=== PATIENT | female | born 1985 | race Caucasian/White ===

== ENCOUNTER 2024-05-10 08:57 | Outpatient (CLI) | payer BC, MEDICAID ==
[~2024-05-10] VITALS: Ht 167.6 cm; Wt 121.8 kg
[~2024-05-10 08:57] MED LIST: ATIVAN 0.50.5 MG/TAB PO; DOXYCYCLINE 10100 MG PO; GLUCOPHAGE500 MG/TAB PO; SINGULAIR 110 MG/TAB PO; WELLBUTRIN XL300 M1 PO
[2024-05-10] MEDS ORDERED: LR 1,000 ML IV PRN (09:00)
[2024-05-10] MEDS ORDERED: ASPIRIN E.C. 8181 MG PO (09:19)
[2024-05-10] MEDS ORDERED: PRENATAL TABLET PO (09:19)
[2024-05-10] MEDS ORDERED: VITAMIN B-610 MG PO (09:19)
[2024-05-10] MEDS ORDERED: PRILOSEC10 MG PO (09:20)
--- NOTE | 2024-05-10 09:28 | NUR ---
0900 PT AMBULATES ONTO THE UNIT WITH SPOUSE FOR MONITORING.PT REPORTS HEADACHES AND MIDLINE PAIN THAT DEVIATES TO THE RIGHT.PT DENIES LOF/VB.PT REPORTS INCONSISTENT CONTRACTIONS. POC REVIEWED WITH PT.EFM AND TOCO TRACING CATEGORY 1.
[2024-05-10 09:30] VITALS: BP 129/70; PULSE 94; TEMP 98.4
[2024-05-10 10:00] VITALS: BP 114/75; PULSE 89
[2024-05-10 10:16] LABS: BASO % 0.4 % (0.0-2.0); EOS % 0.3 % (0.0-4.0); GRAN # 7.7 K/mm3 (1.4-6.5); GRAN % 70.6 % (42.2-75.2); HEMOGLOBIN 10.5 g/dl (12.5-16.0); LYMPH # 2.4 K/mm3 (1.2-3.4); LYMPH % 22.1 % (20.0-51.0); MEAN CELL VOLUME 84 fl (80.0-100.0); MEAN CORPUSCULAR HEMOGLOBIN 28 pg (27-31); MEAN CORPUSCULAR HGB CONC 33 g/dl (33.0-37.0); MEAN PLATELET VOLUME 9.1 fl (7.4-10.4); MONO # 0.7 K/mm3 (0.1-0.6); MONO % 6.2 % (1.7-9.3); PLATELET COUNT 224 K/mm3 (130-400); RED BLOOD COUNT 3.78 M/mm3 (4.10-5.30); REDCELL DISTRIBUTION WIDTH-CV 14.4 % (11.5-14.5)
[2024-05-10 10:18] LABS: HEMATOCRIT 31.6 % (37.0-47.0)
[2024-05-10 10:25] LABS: PH 6.5 (5.0-8.5); URINE APPEARANCE CLEAR (CLEAR/HAZY); URINE BLOOD NEGATIVE (NEGATIVE); URINE COLOR YELLOW (YELLOW); URINE GLUCOSE NEGATIVE (NEGATIVE); URINE KETONE NEGATIVE (NEGATIVE); URINE NITRATE NEGATIVE (NEGATIVE); URINE PROTEIN(semi-quant) NEGATIVE (NEGATIVE); URINE UROBILINOGEN 0.2 E.U/dL (0.2-1.0)
[2024-05-10 10:30] VITALS: BP 121/76; PULSE 89
[2024-05-10 10:32] LABS: ALANINE AMINOTRANSFERASE 10 U/L (0-55); ALBUMIN 2.8 g/dL (3.5-5.0); ALKALINE PHOSPHATASE 112 U/L (40-150); AMYLASE 35 U/L (25-125); ANION GAP 10 mmol/L (7-16); AST,SGOT 10 U/L (5-34); BILIRUBIN,TOTAL 0.3 mg/dL (0.2-1.2); CALCIUM 8.9 mg/dL (8.4-10.2); CHLORIDE 108 mEq/L (98-107); CREATININE, serum 0.55 mg/dL (0.57-1.11); GLUCOSE 86 mg/dL (70-99); LIPASE 11 U/L (8-78); POTASSIUM 3.9 mEq/L (3.5-4.5); SODIUM 139 mEq/L (136-145); TOTAL PROTEIN 5.8 g/dl (6.2-8.1)
[2024-05-10 10:33] LABS: BLOOD UREA NITROGEN < 5 mg/dL (7-19)
[2024-05-10 11:00] VITALS: BP 110/63; PULSE 93
[2024-05-10 11:26] LABS: COLLECTION METHOD CLEAN CATCH
== END 2024-05-10 11:00 | disposition home or self-care (01) ==
LOC: LDRO 08:57
PROVIDERS: Obstetrics & Gynecology
DX: O09.513 Supervision of elderly primigravida, third trimester (principal); Z3A.35 35 weeks gestation of pregnancy

== ENCOUNTER 2024-05-26 06:19 | Inpatient (IN) | payer BC, MEDICAID ==
[2024-05-26] VITALS (33 sets, daily range): BP systolic 94–133; BP diastolic 47–93; PULSE 70–112; TEMP 98–98.1
[~2024-05-26] VITALS: Ht 170.2 cm; Wt 127.3 kg
[~2024-05-26 06:19] MED LIST changes: +ASPIRIN E.C. 8181 MG PO; +PRENATAL TABLET PO; +PRILOSEC10 MG PO; +VITAMIN B-610 MG PO
[2024-05-26] MEDS ORDERED: LR & Oxytocin 500 ML IV SCH (06:45)
[2024-05-26] MEDS ORDERED: LR 1,000 ML IV SCH (06:45)
[2024-05-26] MEDS ORDERED: ePHEDrine 50 MG/10 ML VIAL IV PRN (07:15)
[2024-05-26] MEDS ORDERED: diphenhydrAMINE 25 MG CAP PO PRN (07:15)
[2024-05-26] MEDS ORDERED: diphenhydrAMINE 50 MG/ML 1 ML VIAL IV PRN (07:15)
[2024-05-26] MEDS ORDERED: Naloxone 0.4 MG/ML VIAL IV PRN ×2 (07:15→11:45)
[2024-05-26] MEDS ORDERED: Ondansetron 4 MG/2 ML VIAL IV PRN ×2 (07:15→11:45)
[2024-05-26 07:25] LABS: BASO % 0.3 % (0.0-2.0); EOS # 0.1 K/mm3 (0.0-0.7); EOS % 0.9 % (0.0-4.0); GRAN # 6.5 K/mm3 (1.4-6.5); GRAN % 68.7 % (42.2-75.2); HEMOGLOBIN 11.2 g/dl (12.5-16.0); LYMPH # 2.1 K/mm3 (1.2-3.4); LYMPH % 21.8 % (20.0-51.0); MEAN CELL VOLUME 81 fl (80.0-100.0); MEAN CORPUSCULAR HEMOGLOBIN 27 pg (27-31); MEAN CORPUSCULAR HGB CONC 33 g/dl (33.0-37.0); MEAN PLATELET VOLUME 9.3 fl (7.4-10.4); MONO # 0.8 K/mm3 (0.1-0.6); PLATELET COUNT 236 K/mm3 (130-400); RED BLOOD COUNT 4.15 M/mm3 (4.10-5.30); REDCELL DISTRIBUTION WIDTH-CV 14.7 % (11.5-14.5)
[2024-05-26 07:28] LABS: HEMATOCRIT 33.5 % (37.0-47.0)
[2024-05-26] MEDS ORDERED: TYLENOL 500MG500 MG PO (08:00)
[2024-05-26 09:41] LABS: ALBUMIN 2.8 g/dL (3.5-5.0); BILIRUBIN,TOTAL 0.3 mg/dL (0.2-1.2); CALCIUM 9.1 mg/dL (8.4-10.2); CREATININE, serum 0.55 mg/dL (0.57-1.11); POTASSIUM 3.5 mEq/L (3.5-4.5); TOTAL PROTEIN 5.9 g/dl (6.2-8.1)
[2024-05-26] MEDS ORDERED: ROPivacaine PF 0.2% 200 ML IV ONE (10:09)
[2024-05-26] MEDS ORDERED: NS 20 ML IV ONE (11:34)
[2024-05-26] MEDS ORDERED: Ondansetron 4 MG/2 ML VIAL ONE (11:37)
[2024-05-26] MEDS ORDERED: Azithromycin 500 MG in NS 250 ML IV ONE (11:45)
[2024-05-26] MEDS ORDERED: Loratadine 10 MG TAB PO PRN (11:45)
[2024-05-26] MEDS ORDERED: Acetaminophen 500 MG TAB PO PRN (11:45)
[2024-05-26] MEDS ORDERED: Measles/Mumps/Rubella Virus Vaccine Live w Diluent 0.5 ML VIAL SQ SCH (11:45)
[2024-05-26] MEDS ORDERED: Tranexamic Acid 1,000 MG in NS 100 ML IV ONE (11:45)
[2024-05-26] MEDS ORDERED: Magnes Hydrox (MOM) 80 MG/ML 30 ML CUP PO PRN (11:45)
[2024-05-26] MEDS ORDERED: LR 1,000 ML IV PRN (11:45)
[2024-05-26] MEDS ORDERED: oxyCODONE 5 MG TAB PO PRN (11:45)
[2024-05-26] MEDS ORDERED: Oxytocin 10 UNITS/ML VIAL ONE ×2 (12:01→12:23)
[2024-05-26] MEDS ORDERED: dexAMETHasone 10 MG/ML VIAL ONE (12:04)
[2024-05-26] MEDS ORDERED: Meperidine 50 MG/ML 1 ML VIAL ONE (12:07)
[2024-05-26] MEDS ORDERED: Phenylephrine 10 MG/ML VIAL ONE (12:17)
[2024-05-26] MEDS ORDERED: LR 1,000 ML IV ONE (12:20)
[2024-05-26] MEDS ORDERED: Ketorolac 60 MG/2 ML VIAL IM ONE (12:23)
[2024-05-26] MEDS ORDERED: PERCOCET 325 MG1 TA2 PO (12:41)
[2024-05-26] MEDS ORDERED: MOTRIN 800800 MG/TAB PO (12:41)
[2024-05-26] MEDS ORDERED: LORazepam 2 MG/ML 1 ML VIAL IV ONE (14:15)
[2024-05-26] MEDS ORDERED: Sennosides/Docusate 8.6-50 MG TAB PO SCH (17:00)
[2024-05-26] MEDS ORDERED: Ibuprofen 800 MG TAB PO SCH (17:39)
[2024-05-26] MEDS ORDERED: traZODone 50 MG TAB PO PRN (21:00)
[2024-05-27] VITALS: BP 124/80; PULSE 94; TEMP 98.2
[2024-05-27 07:50] VITALS: BP 105/73; PULSE 92; TEMP 97.6
[2024-05-27] MEDS ORDERED: buPROPion XL (24-HR) 150 MG TAB PO SCH (09:00)
[2024-05-27] MEDS ORDERED: Polyethylene Glycol 3350 17 GM PDS PO SCH (09:06)
[2024-05-27 17:00] VITALS: BP 121/79; PULSE 95; TEMP 98
[2024-05-27] MEDS ORDERED: oxyCODONE 5 MG TAB PO ONE (18:00)
[2024-05-27] MEDS ORDERED: oxyCODONE 5 MG TAB PO PRN (18:00)
[2024-05-27 19:59] VITALS: BP 120/74; PULSE 88; TEMP 98
[2024-05-27] MEDS ORDERED: Acetaminophen 500 MG TAB PO PRN (20:00)
[2024-05-28 06:53] VITALS: BP 124/70; PULSE 78; TEMP 97.6
== END 2024-05-28 11:40 | disposition home or self-care (01) | DRG 788 ==
LOC: LDR 06:19 → OB 06:19
PROVIDERS: ADMIT Obstetrics & Gynecology
PROC: 10D00Z1 Extraction of Products of Conception, Low, Open Approach (ICD-10-PCS; principal; 2024-05-26)
PROC: 3E033VJ Introduction of Other Hormone into Peripheral Vein, Percutaneous Approach (ICD-10-PCS; 2024-05-26)
PROC: 10907ZC Drainage of Amniotic Fluid, Therapeutic from Products of Conception, Via Natural or Artificial Opening (ICD-10-PCS; 2024-05-26)
DX: O13.4 Gestational [pregnancy-induced] hypertension without significant proteinuria, complicating childbirth (principal); Z3A.38 38 weeks gestation of pregnancy; Z37.0 Single live birth; O99.214 Obesity complicating childbirth; O99.344 Other mental disorders complicating childbirth; O32.1XX0 Maternal care for breech presentation, not applicable or unspecified; O40.3XX0 Polyhydramnios, third trimester, not applicable or unspecified; O36.63X0 Maternal care for excessive fetal growth, third trimester, not applicable or unspecified; F41.8 Other specified anxiety disorders
CPT/HCPCS: J0665; J0690; J1100; J1885; J2060; J2175; J2371; J2405; J2590; J2795; J7120

== ENCOUNTER 2024-06-12 23:32 | Outpatient (CLI) | payer BC, MEDICAID ==
[~2024-06-12] VITALS: Ht 167.6 cm; Wt 110.0 kg
[2024-06-12] VITALS (9 sets, daily range): BP systolic 100–123; BP diastolic 60–82; PULSE 65–101; TEMP 97.6–98.1
[2024-06-12 13:30] LABS: BASO # 0.1 K/mm3 (0.0-0.2); BASO % 0.7 % (0.0-2.0); EOS # 0.1 K/mm3 (0.0-0.7); EOS % 0.9 % (0.0-4.0); GRAN # 4.7 K/mm3 (1.4-6.5); GRAN % 55.1 % (42.2-75.2); HEMATOCRIT 41.2 % (37.0-47.0); HEMOGLOBIN 13.3 g/dl (12.5-16.0); LYMPH # 3.2 K/mm3 (1.2-3.4); LYMPH % 37.7 % (20.0-51.0); MEAN CELL VOLUME 83 fl (80.0-100.0); MEAN CORPUSCULAR HEMOGLOBIN 27 pg (27-31); MEAN CORPUSCULAR HGB CONC 32 g/dl (33.0-37.0); MEAN PLATELET VOLUME 9.1 fl (7.4-10.4); MONO # 0.5 K/mm3 (0.1-0.6); MONO % 5.4 % (1.7-9.3); PLATELET COUNT 318 K/mm3 (130-400); RED BLOOD COUNT 4.99 M/mm3 (4.10-5.30)
[2024-06-12 13:33] LABS: URINE APPEARANCE CLEAR (CLEAR/HAZY); URINE BLOOD NEGATIVE (NEGATIVE); URINE COLOR YELLOW (YELLOW); URINE GLUCOSE NEGATIVE (NEGATIVE); URINE KETONE NEGATIVE (NEGATIVE); URINE NITRATE NEGATIVE (NEGATIVE); URINE PROTEIN(semi-quant) NEGATIVE (NEGATIVE); URINE UROBILINOGEN 0.2 E.U/dL (0.2-1.0)
[2024-06-12 13:37] LABS: COLLECTION METHOD CLEAN CATCH
[2024-06-12 13:49] LABS: ALBUMIN 3.8 g/dL (3.5-5.0); BILIRUBIN,TOTAL 0.3 mg/dL (0.2-1.2); C-REACTIVE PROTEIN 0.52 mg/dL (0.00-0.50); CALCIUM 9.6 mg/dL (8.4-10.2); CREATININE, serum 0.75 mg/dL (0.57-1.11); POTASSIUM 4.1 mEq/L (3.5-4.5); TOTAL PROTEIN 6.9 g/dl (6.2-8.1)
--- NOTE | 2024-06-12 17:26 | NUR ---
PT ARRIVES TO UNIT, RM 211 VIA BED FROM OR, BEDSIDE REPORT RECEIVED FROM MADISON STAUFFER AND MEGHANN HAYNES. PT AWAKE AND ALERT, REPORTS STARTING TO FEEL BURNING PAIN NEAR INCISION. WATER AND JELLO PROVIDED. DRESSING AND DRAIN TO LOWER ABD CDI. IVF'S INFUSING BY GRAVITY TO RIGHT AC. PT'S AND AT BEDSIDE.
--- NOTE | 2024-06-12 18:05 | NUR ---
SHARMA CATHETER DISCONTINUED PER ORDERS. IV TO SALINE LOCK. PT PROVIDED CRACKERS AND ENCOURAGED TO ORDER SUPPER. PAIN MEDICATION ADMINISTERED PER ORDERS.
--- NOTE | 2024-06-12 21:00 | NUR ---
Pt able to lift and hold each leg off of bed for 5 seconds. Pt able to ambulate to bathroom with standby assistance. Pt reports still feeling numbness in her buttocks and her feet feel tingly. Unable to void at this time. Encouraged patient to try again in 1 hour.
--- NOTE | 2024-06-12 23:30 | NUR ---
Pt able to void, unmeasured. IV in right AC removed.
[~2024-06-12 23:32] MED LIST changes: +Acetaminophen 500 MG TAB PO SCH; +CEPHALEXIN500 M1 PO; +Iohexol 300 - 100 ML VIAL IV ONE; +LR 1,000 ML IV ONE; +LR 1,000 ML IV PRN; +Loratadine 10 MG TAB PO PRN; +MOTRIN 800800 MG/TAB PO; +Magnes Hydrox (MOM) 80 MG/ML 30 ML CUP PO PRN; +Midazolam 2 MG/2 ML VIAL ONE; +NS 100 ML IV SCH; +Naloxone 0.4 MG/ML VIAL IV PRN; +Ondansetron 4 MG/2 ML VIAL IV PRN; +PERCOCET 325 MG1 TA2 PO; +TYLENOL 500MG500 MG PO; +fentaNYL 50 MCG/ML 2 ML VIAL ONE; +oxyCODONE 5 MG TAB PO PRN; +oxyCODONE/Acetaminophen 5-325 MG TAB PO ONE; +traZODone 50 MG TAB PO PRN
[2024-06-12] MEDS ORDERED: Ibuprofen 800 MG TAB PO SCH (23:34)
--- NOTE | 2024-06-12 23:59 | NUR ---
Discharge instructions reviewed. Informed patient to call [facility] to make an appointment with Dr. Montgomery on Thursday, verbalized understanding. Pt off unit in wheelchair with belongings.
[2024-06-13] MEDS ORDERED: Sennosides/Docusate 8.6-50 MG TAB PO SCH (08:00)
== END 2024-06-12 23:59 | disposition home or self-care (01) ==
LOC: LDRO 23:32 → OB 23:32 → LDRO 23:59
PROVIDERS: Physician Assistant
DX: O90.2 Hematoma of obstetric wound (principal)
CPT/HCPCS: OP; A4314; J0665; J2250; J3010; J7120; Q9967